=== PATIENT | female | born 1995 | race Caucasian/White ===

== ENCOUNTER 2025-08-08 09:27 | Emergency (ER) | payer MEDICAID, SELFPAY ==
[2025-08-08 09:35] VITALS: BP 152/101; PULSE 86; RESP 20; TEMP 36.6; O2SAT 96; BMI 32.8
--- NOTE | 2025-08-08 09:45 | XR_ITS ---
FINAL REPORT CLINICAL HISTORY: Pain, left knee, can t walk FINDINGS: AP and lateral views of the left knee were obtained. There is no prior exam for comparison. There is no acute fracture or dislocation. The joint space is preserved. Soft tissues are normal. IMPRESSION: No acute osseous abnormality of the left knee. Reviewed, Interpreted and Dictated by Mary Tsang MD Transcribed by Phuong Mary Authenticated and [facility]
--- NOTE | 2025-08-08 09:45 | XR_ITS ---
FINAL REPORT CLINICAL HISTORY: pain, left knee, can t walk FINDINGS: AP and lateral views of the left tibia and fibula were obtained. There is no prior exam for comparison. There is no acute fracture of the left tibia or fibula. The knee and ankle appear intact. The soft tissues are normal. IMPRESSION: No acute osseous abnormality of the left tibia or fibula. Reviewed, Interpreted and Dictated by Mary Tsang MD Transcribed by Phuong Mary Authenticated and [facility]
[2025-08-08] MEDS: IBUPROFEN 800 MG TABLET PO (09:56)
--- NOTE | 2025-08-08 10:07 | HMH.EDGENADL ---
Discharge Plan Disposition Patient Disposition: Home, Self-Care Referrals Follow up/Referrals: J Carlos Luu MD [Primary Care Provider, Medical] - See instructions Rajinder Brown DO [Staff Physician, Orthopedics] - See instructions Activity Restrictions/Add. Instructions Additional Instructions/Restrictions: It is possible that you have an injury to your knee. you are being referred to Dr. Brown with orthopedic surgery team for follow-up. Call his office to schedule an appointment. Remain in the brace until your appointment. Use the crutches to help walk. Avoid bearing weight on the leg. You can take [id number]-[id number] medications, such as Tylenol, ibuprofen and, heat and ice to help with your symptoms. Clinical Impressions Clinical Impression: Injury of knee, left Print Language Print Language: [place] Discharge ED Provider: Diony Hassan General Adult HPI General Chief complaint: Extremity Injury, Lower Stated complaint: AO-08/07/25- pain and swelling L knee, cant stand Time Seen by Provider: 08/08/25 09:36 Mode of Arrival: Ambulatory Source of Information: Patient Description of Symptoms (Recalled from ER Triage Doc. by RN): pt is here for left knee pain and swelling that started yesterday morning denies any truama or injuries, no known hx of surgery on that knee History of Present Illness HPI narrative: India Muller is a 30-year-old female with no significant past medical history who presents to the emergency department for complaints of left hand pain. Patient states yesterday, while getting out of bed, earlier getting up in the sheets she twisted her left knee. She states that she has pain in the lower back and the back of her knee ever since. She states that she has been able to bear weight on her leg if she stands up to take pills but it is painful to do so. She reports some swelling to the knee as well. She states that she is able to bend the knee but it does hurt to do so. She took Tylenol last night but it did not help the pain. Related Data Allergies Allergy/AdvReac Type Severity Reaction Status Date / Time AMOXICILLIN Allergy Intermediate I-HIVES Uncoded 11/16/17 15:29 Ampicillin Allergy Intermediate I-HIVES Uncoded 11/16/17 15:29 PCN (PENICILLIN) Allergy Unknown Uncoded 11/16/17 15:29 [facility] Disclaimer: The information contained in this section may have been updated after the patient was seen, as this information can be updated by other users. Social History Smoking Status: Current every day smoker alcohol intake: never current occupational status: employed Travel in the last 8 weeks?: None ROS Obtained: Yes Systems reviewed as appropriate & no additional complaints except as documented Physical Exam General General appearance: alert and in no apparent distress Comment: Uncomfortable appearing Head Head exam: atraumatic Eye Eye exam: Present normal appearance ENT ENT exam: Present normal external ear exam Neck Neck exam: Present full ROM Chest Chest inspection: Present symmetric chest wall rise Respiratory Respiratory exam: Present normal lung sounds bilaterally; Absent respiratory distress Cardiovascular Cardiovascular exam: Present regular rate and normal rhythm Abdominal Exam Abdominal exam: Present soft; Absent tenderness or guarding Extremities Exam Extremities exam: Present normal inspection Expanded Lower Extremity Exam Left: Leg image:  1. Tenderness, mild swelling, mild bruising Comment: LLE: Tenderness over the inferior anterior portion of the left knee. Patient does have full range of motion of the left knee to 90 degrees, however it is painful to do so. There is very mild amount of swelling to the tender area. There is some mild bruising in this area as well. 2+ DP and PT pulses. Sensation grossly intact. Back Exam Back exam: Present normal inspection Neurological Exam Neurological exam: Present alert and oriented X3 Psychiatric Psychiatric exam: Present normal affect Skin Skin exam: Present warm and dry Medical Decision Making Medical Records Screening: Per USPSTF and CDC recommendations, given the prevalence of disease in our region, it is our hospital?s policy to screen for HIV and viral Hepatitis for all patients aged 18 and over and those with ongoing risk factors. Mario Inquiry Pt receiving controlled substance: No Vital Signs: 08/08/25 09:35 08/08/25 10:30 08/08/25 13:54 Temperature 97.8 F 98.2 F Temperature Source Oral Pulse Rate 97 H 80 Pulse Rate [Left Radial] 86 Respiratory Rate 20 20 Blood Pressure 133/88 148/79 H Blood Pressure [Right Arm] 152/101 H Blood Pressure Mean 96 Blood Pressure Mean [Right Arm] 118 02 Sat by Pulse Oximetry 96 96 Oxygen Delivery Method Room Air Room Air Room Air Orders (Tests/Meds): ED MEDICATIONS Discontinued Medications Generic Name Dose Route Start Last Admin Trade Name Freq PRN Reason Stop Dose Admin Ibuprofen 800 mg 08/08/25 09:46 08/08/25 09:56 Ibuprofen 800 Mg Tablet PO 08/08/25 09:47 800 mg ONCE ONE Administration ORDERS Category Date Time Status CT knee LT wo con Stat Cat Scan 08/08/25 11:55 Completed Fibula/tibia XR left 2 views [XR tibia fibula LT 2V] Exams 08/08/25 09:45 Completed Stat Knee XR left 2 views [XR knee LT 2V] Stat Exams 08/08/25 09:45 Completed Medical Decision Narrative: India Muller is a 30-year-old female with no significant past medical history who presents to the emergency department for complaints of left hand pain. Patient states yesterday, while getting out of bed, earlier getting up in the sheets she twisted her left knee. She states that she has pain in the lower back and the back of her knee ever since. She states that she has been able to bear weight on her leg if she stands up to take pills but it is painful to do so. She reports some swelling to the knee as well. She states that she is able to bend the knee but it does hurt to do so. She took Tylenol last night but it did not help the pain. On arrival, patient is hemodynamically stable, no acute distress, breathing comfortably on room air. Physical exam, stated above, revealed overall well-appearing female in no distress. She has tenderness over the inferior/anterior aspect of the left knee with some mild swelling and ecchymosis in this area. She does have full active range of motion of the left knee to 90 degrees, however she states that this is painful. 2+ DP and PT pulses. Sensation intact distally. Differential diagnosis includes, but is not limited to: Ligamentous injury, tibial plateau fracture, patella fracture, joint effusion, low concern for septic arthritis or crystal arthropathy at this time as patient had a traumatic injury that resulted in her pain and swelling. The joint itself is not warm to touch, lowering suspicion for infectious cause. Workup in the emergency room included: Left knee and tib-fib x-rays. Patient was given in her milligrams of ibuprofen orally. X-ray imaging was interpreted by me personally. No acute fracture or dislocation is appreciated. See radiology for for details. Patient is still unable to bear weight on her left leg due to clinical concern for tibial plateau even with negative x-rays, will obtain CT imaging for further investigation. CT left knee was ordered without contrast. CT imaging interpreted by me personally. No acute fracture or dislocation also noted on CT scan. Given this, patient's injury is likely ligamentous in nature and will need orthopedic follow-up. Will place patient in a knee immobilizer and instruct her to avoid bearing weight on that leg and provide crutches for ambulation. Referral was sent to Dr. Brown. Patient instructed to take Tylenol and ibuprofen over the next several days to help with pain. Return precautions were given. All questions were answered. She demonstrated understanding and was in agreement this plan. She was then discharged from the emergency department in stable condition. Critical Care Critical Care Time Critical Care Time: No
--- NOTE | 2025-08-08 10:15 | PC.NURSE ---
pt given a pillow for her left knee. friend at BS.
[2025-08-08 10:30] VITALS: BP 133/88; PULSE 97; O2SAT 96
--- NOTE | 2025-08-08 10:35 | PC.NURSE ---
pt to restroom with wheelchair assistance
--- NOTE | 2025-08-08 11:55 | CT_ITS ---
FINAL REPORT TECHNIQUE: Thin section axial images were obtained through the left knee without contrast. Reconstruction images were obtained from the axial data. Exam was performed using dose reduction technique. CLINICAL HISTORY: Possible tibial plateau fx, pain in L knee FINDINGS: There is no fracture identified. Joint space is preserved. There is a minuscule joint effusion. Remaining soft tissues are without acute abnormality. Quadriceps and patellar tendons are intact. IMPRESSION: Minuscule joint effusion. No acute bony abnormality. Reviewed, Interpreted and Dictated by Mary Tsang MD Transcribed by Ellen Fulton Authenticated and [facility]
[2025-08-08 13:54] VITALS: BP 148/79; PULSE 80; RESP 20; TEMP 36.8; O2SAT 97
== END 2025-08-08 14:01 | disposition home or self-care (01) ==
PROVIDERS: Emergency Provider Student in an Organized Health Care Education/Training Program; PCP Family Medicine
DX: S89.92XA Unspecified injury of left lower leg, initial encounter (principal); M25.462 Effusion, left knee; M25.562 Pain in left knee; X50.1XXA Overexertion from prolonged static or awkward postures, initial encounter
CPT/HCPCS: 73560; 73590; 73700; 99283; 99284

== ENCOUNTER 2025-10-18 09:53 | Outpatient (CLI) | payer MEDICAID, SELFPAY | END 2025-10-18 23:59 | disposition home or self-care (01) | LOC: LAB 09:53 | PROVIDERS: PCP Family Medicine; Visit Provider Nurse Practitioner Obstetrics & Gynecology | DX: Z34.90 Encounter for supervision of normal pregnancy, unspecified, unspecified trimester (principal); Z3A.00 Weeks of gestation of pregnancy not specified | CPT/HCPCS: 36415; 84144; 84702 ==

== ENCOUNTER 2025-10-31 09:11 | Outpatient (CLI) | payer MEDICAID, SELFPAY ==
--- NOTE | 2025-10-31 09:30 | US_ITS ---
PROCEDURE: US OB TRANSVAGINAL CLINICAL INDICATION: dates and viability COMPARISON: No exams were available for comparison FINDINGS: Transvaginal sonographic images of the pelvis were obtained. From her last menstrual period she is 9weeks 6days. An intrauterine gestational sac is present with a pole with a crown-rump length of 2.27cm This correlates to a gestational age of 9weeks 0 days. RUSLAN 06/05/2026 heart tones are present with an FHR of 163bpm. Yolk sac is noted. The yolk sac measures 7.6mm. The right ovary is seen and appears normal. The left ovary is seen and appears normal. There is no fluid in the cul-de-sac. IMPRESSION: 1. Viable embryo within the uterine cavity. Heart rate activity is seen. 2. The embryo measures 9 weeks 0 days and RUSLAN will be 06/05/2026. 3. Both ovaries are seen and appear normal. 4. No fluid in the cul-de-sac. Dictated by: Josh Adame MD 10/31/2025 10:44 Josh Adame MD in OV 10/31/2025 10:44
[2025-10-31 10:34] LABS: Hematocrit 37.2 % (37.0-47.0); Hemoglobin 12.6 g/dL (12.2-16.2); Immature Granulocytes % 0.1 %; Mean Corpuscular HGB Conc 33.9 g/dL (31.8-35.4); Mean Corpuscular Hemoglobin 30.5 pg (27.0-31.2); Mean Corpuscular Volume 90.1 fl (81-99); Nucleated Red Blood Cells % 0 %; Platelet Count 262 K/mm3 (142-424); Red Blood Count 4.13 M/mm3 (4.20-5.40); Red Cell Distribution Width-SD 41.9 fL; White Blood Count 7.3 K/mm3 (4.8-10.8)
[2025-10-31 11:40] LABS: Hepatitis C Ab Qual. W/ RFX REACTIVE (Negative)
[2025-10-31 16:57] LABS: RPR W/RFX Titers Nonreactive (Nonreactive)
[2025-11-01 09:37] LABS: Rubella Antibodies, IgG 1.88 index (Immune >0.99)
[2025-11-01 14:22] LABS: Hepatitis B Surface Antigen Confirm. indicated (Negative)
== END 2025-10-31 23:59 | disposition home or self-care (01) ==
PROVIDERS: PCP Family Medicine; Visit Provider Nurse Practitioner Obstetrics & Gynecology
DX: Z34.81 Encounter for supervision of other normal pregnancy, first trimester (principal); Z3A.09 9 weeks gestation of pregnancy
CPT/HCPCS: 36415; 76817; 85025; 86592; 86762; 86787; 86803; 86850; 87389; 87522